=== PATIENT | male | born 1995 | race Caucasian/White ===

== ENCOUNTER 2017-06-12 15:02 | Emergency (ER) | payer OTHER ==
[2017-06-12 14:55] VITALS: O2SAT 99
[~2017-06-12 15:02] MED LIST: HYDR-3533 PO; IBUP800T23 PO; METH750T2 PO
[2017-06-12] MEDS ORDERED: IOHEXOL 350 MG/ML 10 ML VIAL (for RAD DIAG) IVCONTRAST ONE (15:03)
[2017-06-12] MEDS ORDERED: MORPHINE SULFATE 4 MG/ML INJ ONE (15:10)
[2017-06-12] MEDS ORDERED: ONDANSETRON HCL 4 MG/2 ML VIAL ONE (15:10)
[2017-06-12 15:25] LABS: AUTOMATED NEUTROPHIL # 14.6 TH/MM3 (1.8-7.7); BASOPHIL # 0.1 TH/MM3 (0-0.2); BASOPHIL % 0.5 % (0.0-2.0); EOSINOPHIL # 0.2 TH/MM3 (0-0.4); EOSINOPHIL % 1.1 % (0.0-4.0); HEMATOCRIT 52.2 % (39.0-51.0); LYMPH % 15.8 % (9.0-44.0); LYMPHOCYTE # 3.1 TH/MM3 (1.0-4.8); MEAN CELL VOLUME 85.7 FL (80.0-100.0); MEAN CORPUSCULAR HEMOGLOBIN 29.5 PG (27.0-34.0); MEAN CORPUSCULAR HGB CONC 34.4 % (32.0-36.0); MEAN PLATELET VOLUME 8.3 FL (7.0-11.0); MONO % 9.3 % (0.0-8.0); MONOCYTE # 1.8 TH/MM3 (0-0.9); NEUT % 73.3 % (16.0-70.0); PLATELET COUNT 373 TH/MM3 (150-450); RED CELL DISTRIBUTION WIDTH 13.3 % (11.6-17.2); WHITE BLOOD COUNT 19.9 TH/MM3 (4.0-11.0)
[2017-06-12] MEDS ORDERED: HYDROmorphone HCL PF 2 MG/ML VIAL ONE (15:44)
[2017-06-12 15:46] VITALS: BP 138/76; PULSE 114; RESP 19; O2SAT 98
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
[2017-06-12 15:53] LABS: PROTHROMBIN TIME - PATIENT 10.5 SEC (9.8-11.6)
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
[2017-06-12] MEDS ORDERED: HYDROmorphone HCL PF 2 MG/ML VIAL IV PUSH ONE (16:45)
[2017-06-12] MEDS ORDERED: HYDROmorphone HCL PF 1 MG/ML VIAL IV PUSH ONE (17:15)
[2017-06-12] MEDS ORDERED: HYDROmorphone HCL PF 2 MG/ML VIAL IV ONE (17:15)
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
[2017-06-12] MEDS ORDERED: PERC5TAB12 PO (17:44)
[2017-06-12 17:54] VITALS: BP 136/79; PULSE 111; RESP 18; O2SAT 96
== END 2017-06-12 18:17 | disposition home or self-care (01) ==
LOC: EDBD 15:02 → NEPI 15:02 → MERGE 15:02 → NEPE 18:17
DX: S30.811A Abrasion of abdominal wall, initial encounter (principal); S30.810A Abrasion of lower back and pelvis, initial encounter; M79.671 Pain in right foot; M79.604 Pain in right leg; V29.9XXA Motorcycle rider (driver) (passenger) injured in unspecified traffic accident, initial encounter
CPT/HCPCS: 70450; 71045; 71260; 72125; 72129; 72132; 72170; 73620; 74177; 80048; 85025; 85610; 85730; 86850; 86900; 86901; 86920; 96374; 96375; 96376; 99285; 99291; J1170; J2270; J2405; L0150; Q9967; G0390

== ENCOUNTER 2018-04-26 09:47 | Inpatient (IN) ==
[2018-04-26] MEDS ORDERED: Sod Chloride 0.9% Inj 1,000 ML IV.SIG ONE (10:17)
[2018-04-26] MEDS ORDERED: Morphine Inj 4 MG/ML Vial IV.PUSH ONE (10:17)
--- NOTE | 2018-04-26 10:27 | ED ---
HPI General Chief Complaint: Abdominal Pain Stated Complaint: Abd pain Time Seen by Provider: 04/26/18 10:10 Source: patient Mode of arrival: ambulatory Limitations: no limitations History of Present Illness HPI narrative: Patient is a 22-year-old male who presents the emergency room with complaints of abdominal pain. Patient reports that for the past 7 days, he has been having severe diffuse abdominal pain. Patient reports that his abdominal pain is associated with nausea and vomiting. Patient reports that he is unable to eat or drink anything due to this pain. Patient was seen at [facility] 2 days in a row, reports that on April 24 as well as April 25, he did have a CT of his abdomen and pelvis which showed mild thickening of the distal colon as well as the terminal ileum. Findings can be seen with chronic enteritis, inflammatory bowel disease should be excluded. Patient was discharged home with a prescription for Flagyl as well as Cipro, he was told to follow-up with a reconditioner. Patient did follow-up with Dr. Garcia today in the office - he was told to come to the ER as he will need a colonoscopy. Patient reports that he has not been able to take any of his antibiotics due to his nausea MD complaint: Reports abdominal pain Onset (ago): day(s) (7 days) Pain Consistency: constant Location: Reports diffuse Severity: severe Severity scale (1-10): 7 Quality: Reports cramping and stabbing Relieving factors: nothing Exacerbating factors: nothing Associated symptoms: Reports nausea and vomiting Related Data Previous Rx's Medication Instructions Recorded calcium carbonate-simethicone 1 tab PO TID PRN #14 tab 12/23/17 [Maalox Advanced] famotidine [Pepcid] 40 mg PO Q12H #14 tab 12/23/17 ondansetron [Zofran ODT] 4 mg PO QID PRN #7 tab 12/23/17 Allergies Allergy/AdvReac Type Severity Reaction Status Date / Time No Known Allergies Allergy Uncoded 04/08/15 11:10 Review of Systems ROS: all other systems reviewed are negative [facility] Medical History Medical History HTN (hypertension) (Acute) Social History Social History Substance History: Past History Smoking Status: Current some day smoker Tobacco Type: Cigarettes How Often Do You Have a Drink Containing Alcohol: 2 to 3 times a week Recent Travel in [facility] within the Last 8 Weeks: No Recent Out of Country Travel within the Last 8 Weeks: No Immunization History Tetanus Immunization: Unsure Exam Narrative Exam Narrative: GENERAL: Moderate distress, patient is yelling and screaming on the stretcher SKIN: Focused skin assessment warm/dry. HEAD: Atraumatic. Normocephalic. EYES: Pupils equal and round. No scleral icterus. No injection or drainage. ENT: No nasal bleeding or discharge. Mucous membranes pink and moist. NECK: Trachea midline. No JVD. CARDIOVASCULAR: Regular rate and rhythm. No murmur appreciated. RESPIRATORY: No accessory muscle use. Clear to auscultation. Breath sounds equal bilaterally. GASTROINTESTINAL: Abdomen soft, diffusely tender, nondistended. Hepatic and splenic margins not palpable. MUSCULOSKELETAL: No obvious deformities. No clubbing. No cyanosis. No edema. NEUROLOGICAL: Awake and alert. No obvious cranial nerve deficits. Motor grossly within normal limits. Normal speech. PSYCHIATRIC: Anxious mood and affect; insight and judgment normal. Course Initial Documented Vital Signs Temperature 97.3 F L 04/26/18 09:59 Pulse Rate 103 H 04/26/18 09:59 Respiratory Rate 16 04/26/18 09:59 Blood Pressure 128/75 04/26/18 09:59 Pulse Oximetry 99 04/26/18 09:59 Last Documented Vital Signs Temperature 97.3 F L 04/26/18 09:59 Pulse Rate 103 H 04/26/18 09:59 Respiratory Rate 16 04/26/18 09:59 Blood Pressure 128/75 04/26/18 09:59 Pulse Oximetry 99 04/26/18 09:59 Medical Decision Making MDM Narrative Medical decision making narrative: During the course of the patients emergency department visit, the patients history, examination, and differential diagnosis were reviewed with the patient. The patient was placed on a pattern maker with oximetry and frequent blood pressure monitoring. The patient had an IV access obtained and blood work sent for analysis. The patient was initially provided IV morphine as well as IV Zofran and IV fluids. A call was made out to the reconditioner, Dr. Garcia to review case Patient has had multiple CTs of his abdomen pelvis with contrast over the past few days, his CT from April 24 as well as April 25 were unchanged and did show suspicion for enteritis. Given that he has had 2 CAT scans in the past 3 days, we will hold off on repeating a CT. Case reviewed wt Dr. 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 The patients laboratory studies were reviewed and remarkable for WBC 18.3, hemoglobin 16.1, hematocrit 46.8, platelets 291 Sodium 141, potassium 3.5, BUN 11, creatinine 0.85, glucose 89, lactic acid 1.8 Patient reports that he was feeling much better after the IV morphine was administered, he was able to "take a cat nap." Plan to admit for observation for this colonoscopy. I did instruct patient to stop using marijuana, patient reports that he cannot as he uses about 1 pound of marijuana per month to help with his anger management and he is afraid to quit smoking. He will try to quit if he has to. case reviewed with Dr. Nilson Morales who accepts pt to service Medical Screen Exam Complete: Yes Emergency Medical Condition: Yes Differential Diagnosis Differential Diagnosis: Enteritis, IBS, colitis, electrolyte abnormality, mesenteric ischemia, perforated bowel Medical Records Medical records reviewed: Yes I reviewed the patient's medical records. Lab Data Result diagrams: 04/26/18 10:20 04/26/18 10:20 Lab Results 04/26/18 04/26/18 04/26/18 Range/Units 10:20 10:20 10:20 WBC 18.3 H (4.0-11.0) th/mm3 RBC 5.36 (4.50-5.90) mil/mm3 Hgb 16.1 (13.0-17.0) gm/dL Hct 46.8 (39.0-51.0) % MCV 87.2 (80.0-100.0) fL MCH 30.1 (27.0-34.0) pg MCHC 34.5 (32.0-36.0) % RDW 12.9 (11.6-17.2) % Plt Count 291 (150-450) th/mm3 MPV 8.8 (7.0-11.0) fL Neut % (Auto) 77.8 H (16.0-70.0) % Lymph % (Auto) 10.8 (9.0-44.0) % [place] % (Auto) 8.2 H (0.0-8.0) % Eos % (Auto) 2.9 (0.0-4.0) % Baso % (Auto) 0.3 (0.0-2.0) % Neut # (Auto) 14.3 H (1.8-7.7) th/mm3 Lymph # (Auto) 2.0 (1.0-4.8) th/mm3 [place] # (Auto) 1.5 H (0.0-0.9) th/mm3 Eos # (Auto) 0.5 H (0.0-0.4) th/mm3 Baso # (Auto) 0.1 (0.0-0.2) th/mm3 WBC Differential . Differential Comment Auto diff final PT 11.6 (9.8-11.6) sec INR 1.1 Ratio Sodium 141 (136-145) meq/L Potassium 3.5 (3.5-5.1) meq/L Chloride 108 H (98-107) meq/L Carbon Dioxide 22.1 (21.0-32.0) meq/L Anion Gap 11 (5-15) meq/L BUN 11 (7-18) mg/dL Creatinine 0.85 (0.60-1.30) mg/dL Estimated GFR Greater than 89 (>89) mL/min Random Glucose 89 (74-106) mg/dL Lactic Acid (0.4-2.0) mmol/L Calcium 9.5 (8.5-10.1) mg/dL Magnesium 1.8 (1.5-2.5) mg/dL Total Bilirubin 0.7 (0.2-1.0) mg/dL AST 16 (15-37) U/L ALT 22 (12-78) U/L Alkaline Phosphatase 68 (45-117) U/L Total Protein 8.2 (6.4-8.2) g/dL Albumin 4.7 (3.4-5.0) g/dL Lipase 81 (73-393) U/L Urine Color (Yellw/Straw) Urine Clarity (Clear) Urine pH (5.0-8.5) Ur Specific [place] (1.002-1.035) Urine Protein (Neg-Trace) mg/dL Urine Glucose (UA) (Negative) mg/dL Urine Ketones (Negative) mg/dL Urine Occult Blood (Negative) Urine Nitrate (Negative) Urine Bilirubin (Negative) Urine Urobilinogen (Less than 2) mg/dL Ur Leukocyte Esterase (Negative) Urine RBC (0-3) /hpf Urine WBC (0-5) /hpf Urine Mucus (Occasional) /lpf Micro UA Comment Ur Microscopic Review Urine Culture Comments Urine Opiates Screen (Neg) Ur Barbiturates Screen (Neg) Ur Amphetamines Screen (Neg) U Benzodiazepines Scrn (Neg) Urine Cocaine Screen (Neg) U Cannabinoids Screen (Neg) 04/26/18 04/26/18 04/26/18 Range/Units 10:20 10:20 10:20 WBC (4.0-11.0) th/mm3 RBC (4.50-5.90) mil/mm3 Hgb (13.0-17.0) gm/dL Hct (39.0-51.0) % MCV (80.0-100.0) fL MCH (27.0-34.0) pg MCHC (32.0-36.0) % RDW (11.6-17.2) % Plt Count (150-450) th/mm3 MPV (7.0-11.0) fL Neut % (Auto) (16.0-70.0) % Lymph % (Auto) (9.0-44.0) % [place] % (Auto) (0.0-8.0) % Eos % (Auto) (0.0-4.0) % Baso % (Auto) (0.0-2.0) % Neut # (Auto) (1.8-7.7) th/mm3 Lymph # (Auto) (1.0-4.8) th/mm3 [place] # (Auto) (0.0-0.9) th/mm3 Eos # (Auto) (0.0-0.4) th/mm3 Baso # (Auto) (0.0-0.2) th/mm3 WBC Differential Differential Comment PT (9.8-11.6) sec INR Ratio Sodium (136-145) meq/L Potassium (3.5-5.1) meq/L Chloride (98-107) meq/L Carbon Dioxide (21.0-32.0) meq/L Anion Gap (5-15) meq/L BUN (7-18) mg/dL Creatinine (0.60-1.30) mg/dL Estimated GFR (>89) mL/min Random Glucose (74-106) mg/dL Lactic Acid 1.8 (0.4-2.0) mmol/L Calcium (8.5-10.1) mg/dL Magnesium (1.5-2.5) mg/dL Total Bilirubin (0.2-1.0) mg/dL AST (15-37) U/L ALT (12-78) U/L Alkaline Phosphatase (45-117) U/L Total Protein (6.4-8.2) g/dL Albumin (3.4-5.0) g/dL Lipase (73-393) U/L Urine Color Yellow (Yellw/Straw) Urine Clarity Clear (Clear) Urine pH 6.0 (5.0-8.5) Ur Specific [place] 1.029 (1.002-1.035) Urine Protein 30 H (Neg-Trace) mg/dL Urine Glucose (UA) Negative (Negative) mg/dL Urine Ketones 80 or greater H (Negative) mg/dL Urine Occult Blood Negative (Negative) Urine Nitrate Negative (Negative) Urine Bilirubin Negative (Negative) Urine Urobilinogen Less than 2 (Less than 2) mg/dL Ur Leukocyte Esterase Negative (Negative) Urine RBC 1 (0-3) /hpf Urine WBC 2 (0-5) /hpf Urine Mucus Many H (Occasional) /lpf Micro UA Comment Culture not ind Ur Microscopic Review Not Reportable Urine Culture Comments Culture not ind Urine Opiates Screen Pos H (Neg) Ur Barbiturates Screen Neg (Neg) Ur Amphetamines Screen Neg (Neg) U Benzodiazepines Scrn Neg (Neg) Urine Cocaine Screen Neg (Neg) U Cannabinoids Screen Pos H (Neg) Imaging Data Radiologist's impression: Chest X-Ray 04/26/18 10:17 CONCLUSION: No acute cardiopulmonary disease. There is no evidence of free air. Discharge Plan Discharge Disposition Patient Disposition: ED Admit(ED Internal Use Only) Discharge Condition Condition: Stable Discharge Order Discharge Orders: ED Use Only Admit Order (Routine); Ordered 04/26/18 Ordered By: Radha Kowalski Discharge Details Diagnosis: Abdominal pain, Enteritis Physicians Team ED Provider: Radha Kowalski Primary Care Provider: UNKNOWN, Other Providers: Raj Abarca V Rxs /Orders / Referrals /Forms Prescriptions: No Action famotidine [Pepcid] 40 mg tablet 40 mg PO Q12H Qty: 14 RF: 0 ondansetron [Zofran ODT] 4 mg tablet,disintegrating 4 mg PO QID PRN (Reason: nausea and vomiting) Qty: 7 RF: 0 calcium carbonate-simethicone [Maalox Advanced] 1,000-60 mg tablet,chewable 1 tab PO TID PRN (Reason: dyspepsia) Qty: 14 RF: 0 Status ED Status: Admitted Observation Patient
[2018-04-26 10:51] LABS: INR 1.1 Ratio; Prothrombin Time 11.6 sec (9.8-11.6)
[2018-04-26 10:53] LABS: Baso # (Auto) 0.1 th/mm3 (0.0-0.2); Baso % (Auto) 0.3 % (0.0-2.0); Eos # (Auto) 0.5 th/mm3 (0.0-0.4); Eos % (Auto) 2.9 % (0.0-4.0); Hematocrit 46.8 % (39.0-51.0); Hemoglobin 16.1 gm/dL (13.0-17.0); Lymph % (Auto) 10.8 % (9.0-44.0); Mean Corpuscular HGB Conc 34.5 % (32.0-36.0); Mean Corpuscular Hemoglobin 30.1 pg (27.0-34.0); Mean Corpuscular Volume 87.2 fL (80.0-100.0); Mean Platelet Volume 8.8 fL (7.0-11.0); Mono # (Auto) 1.5 th/mm3 (0.0-0.9); Mono % (Auto) 8.2 % (0.0-8.0); Neut # (Auto) 14.3 th/mm3 (1.8-7.7); Neut % (Auto) 77.8 % (16.0-70.0); Platelet Count 291 th/mm3 (150-450); Red Blood Count 5.36 mil/mm3 (4.50-5.90); Red Cell Distribution Width 12.9 % (11.6-17.2); White Blood Count 18.3 th/mm3 (4.0-11.0)
[2018-04-26 10:56] LABS: Alanine Aminotransferase 22 U/L (12-78); Albumin 4.7 g/dL (3.4-5.0); Anion Gap 11 meq/L (5-15); Aspartate Aminotransferase 16 U/L (15-37); Blood Urea Nitrogen 11 mg/dL (7-18); Calcium 9.5 mg/dL (8.5-10.1); Carbon Dioxide 22.1 meq/L (21.0-32.0); Chloride 108 meq/L (98-107); Glomerular Filtration Rate Greater Than 89 mL/min (>89); Glucose,Random 89 mg/dL (74-106); Lipase 81 U/L (73-393); Magnesium 1.8 mg/dL (1.5-2.5); Potassium 3.5 meq/L (3.5-5.1); Sodium 141 meq/L (136-145)
--- NOTE | 2018-04-26 10:56 | XR ---
EXAM DATE: 04/26/2018 10:44 AM EST AGE/SEX: 22 years / Male INDICATIONS: Abdomen and pelvic pain. Please evaluate for free air. CLINICAL DATA: This is the patient's initial encounter. Patient reports that signs and symptoms have been present for 1 day and indicates a pain score of 8/10. MEDICAL/SURGICAL HISTORY: None. None. COMPARISON: [facility] [place], CHEST SINGLE AP, 06/12/2017. . FINDINGS: A single AP view of the chest demonstrates the lungs to be symmetrically aerated without evidence of mass, infiltrate or effusion. The cardiomediastinal contours are unremarkable. Osseous structures a re intact. There is no evidence of free air. CONCLUSION: No acute cardiopulmonary disease. There is no evidence of free air. Electronically signed by: Justin Rawls MD 04/26/2018 10:55 AM EST
[2018-04-26 10:59] LABS: Alkaline Phosphatase 68 U/L (45-117); Total Protein 8.2 g/dL (6.4-8.2)
[2018-04-26] MEDS ORDERED: Ciprofloxacin 400 MG/200 ML 400 MG/200 ML PIGGYBACK IV.SIG ONE (11:06)
[2018-04-26 11:10] LABS: Bilirubin,Urine Negative (Negative); Clarity,Urine Clear (Clear); Color,Urine Yellow (Yellw/Straw); Glucose,Urine (UA) Negative (Negative); Leukocyte Esterase,Urine Negative (Negative); Mucus,Urine Many /lpf (Occasional); Nitrite,Urine Negative (Negative); Specific Gravity,Urine 1.029 (1.002-1.035)
[2018-04-26 11:16] LABS: Amphetamine Screen,Urine Neg (Neg); Barbiturate Screen,Urine Neg (Neg); Cannabinoid Screen,Urine Pos (Neg); Cocaine Screen,Urine Neg (Neg)
[2018-04-26 11:19] LABS: Opiate Screen,Urine Pos (Neg)
[2018-04-26] MEDS ORDERED: Bisacodyl 10 MG Supp RECTAL PRN (11:56)
[2018-04-26] MEDS ORDERED: Naloxone Inj 0.4 MG/ML Vial IV.PUSH PRN (11:56)
[2018-04-26] MEDS ORDERED: Acetaminophen 325 MG Tablet PO PRN (11:56)
[2018-04-26] MEDS ORDERED: Ciprofloxacin 400 MG/200 ML 400 MG/200 ML PIGGYBACK IV.SIG SCH (12:00)
[2018-04-26] MEDS: Sod Chloride 0.9% Inj 1,000 ML IV.CONT SCH ×3 (12:53→21:54)
--- NOTE | 2018-04-26 12:57 | P.CONGI ---
History of Present Illness Consult date: 04/26/18 Consult reason: Lower abdominal pain with nausea and vomiting Chief complaint: Enteritis, Abdominal Pain History of Present Illness: This patient is a 22-year-old male with past medical history of hypertension who presents to the emergency room at [facility], sent from GI MD for complaints of lower abdominal pain and cramping with nausea and vomiting. Patient denies any past history of surgeries. Upon consultation, patient endorses lower abdominal "mild" cramping since December 2017 with intermittent nausea and vomiting which provided relief. Patient states over the last week the pain has increased in severity, is now constant without any aggravating or alleviating factors. Patient describes pain as a twisting and tight sensation. Denies fever or chills. At this time patient rates pain as 1 out of 10 due to recent administration of morphine in the ER. Patient denies ever having had EGD or colonoscopy in the past. He denies any known family history for gastrointestinal disorders. Patient denies any difficulty swallowing or heartburn. Patient states he normally has 1 soft brown bowel movement daily without any noted bleeding. States last BM 3 days ago. Patient does endorse smoking cigarettes 1 pack/day. He also endorses the use of marijuana daily up until 1 week ago. Patient denies any use of alcohol products. Our service has been consulted to evaluate patient for his lower abdominal pain with nausea and vomiting. Review of Systems All other systems reviewed negative except as stated in HPI PMFSH - History History Provided By: Patient - Medical History Medical History: Medical History (Last Reviewed 04/26/18 @ 16:37 by Shiloh Evans) HTN (hypertension) - Surgical History Surgical History: Surgical History (Last Updated 04/26/18 @ 17:27 by Shiloh Evans) No history of previous surgery - Family History Family History: Family History (Last Updated 04/26/18 @ 17:27 by Shiloh Evans) Father ESRD (end stage renal disease) Father HTN (hypertension) - Tobacco History Tobacco Use In Past 30 Days: Yes Smoking Status: Current some day smoker Tobacco Type: Cigarettes - Alcohol History How Often Do You Have a Drink Containing Alcohol: 2 to 3 times a week - Substance Use History Substance History: Past History - Substance Use Type Marijuana Status: Active Route Used: Inhalation Reason for Use: Calm Down, Feels Good, Get High - Travel History Recent Travel in the [facility] Within the Last 8 Weeks: No Recent Travel Out of the Country Within the Last 8 Weeks: No - Immunization History Tetanus Immunization: Unsure Medications and Allergies Active Medications: Active Medications Acetaminophen (Tylenol) 650 mg PO Q4H PRN PRN Reason: headache/fever/pain1-4 Hydrocodone Bitart/Acetaminophen (Barlow 5/325) 1 tab PO Q6H PRN PRN Reason: pain scale 5 to 10 Al Hydroxide/Mg Hydroxide (Milk Of Magnesia Liq) 30 ml PO Q12H PRN PRN Reason: Mild Constipation Bisacodyl (Dulcolax Supp) 10 mg RECTAL DAILY PRN PRN Reason: SEVERE CONSITIPATION Sodium Chloride (Ns Inj) 1,000 mls @ 100 mls/hr IV.CONT .Q10H SANA Ciprofloxacin/Dextrose (Cipro 400 Mg/200 Ml Inj) 400 mg in 200 mls @ 200 mls/ hr IV.SIG Q8H SANA Last Admin: 04/26/18 12:15 Dose: Not Given Metronidazole/Sodium Chloride (Flagyl 500 Mg Inj) 100 mls @ 100 mls/hr IV.SIG Q12H SANA Last Admin: 04/26/18 12:16 Dose: Not Given Lactulose (Lactulose Liq) 30 ml PO DAILY PRN PRN Reason: SEVERE CONSITIPATION Morphine Sulfate (Morphine Inj) 2 mg IV.PUSH Q4H PRN PRN Reason: breakthrough pain/or if NPO Naloxone HCl (Narcan Inj) 0.4 mg IV.PUSH UNSCH PRN PRN Reason: SEE LABEL COMMENTS Ondansetron HCl (Zofran Inj) 4 mg IV.PUSH Q6H PRN PRN Reason: NAUSEA OR VOMITING Polyethylene Glycol/Electrolytes (Colyte Liq) 4,000 ml PO ONCE ONE Stop: 04/26/18 16:01 Sennosides (Senokot) 17.2 mg PO Q12H PRN PRN Reason: Moderate Constipation Sodium Chloride (Ns Flush) 2 ml IV.FLUSH PRN PRN PRN Reason: FLUSH AFTER USING IV ACCESS Sodium Chloride (Ns Flush) 2 ml IV.FLUSH BID SANA Sodium Chloride (Ns Flush) 2 ml IV.FLUSH PRN PRN PRN Reason: FLUSH AFTER USING IV ACCESS Allergies Allergy/AdvReac Type Severity Reaction Status Date / Time No Known Allergies Allergy Uncoded 04/08/15 11:10 Exam Vital signs: Vital Signs 04/26/18 09:59 04/26/18 10:18 04/26/18 11:56 Temperature 97.3 F L Pulse Rate 103 H 84 Respiratory Rate 16 17 Blood Pressure 128/75 110/54 L Pulse Oximetry 99 97 97 Intake & Output 04/25/18 04/26/18 04/26/18 18:59 06:59 18:59 Intake Total 1100 / 1100 Balance 1100 / 1100 Weight 95.254 kg Intake: IV 1100 / 1100 NS Inj 1,000 ML @ Wide Open IV. 1000 / 1000 SIG BOLUS ONE Rx#:[id number] Flagyl 500 MG Inj 100 ML @ 100 100 / 100 mls/hr IV.SIG ONCE ONE Rx#: [id number] - Constitutional no acute distress - Routine HEENT Exam Head: Present: normocephalic - Routine Respiratory Exam Present: CTA bilaterally. Absent: accessory muscle use - Routine Cardiovascular Exam Present: RRR, S1, S2 - Routine Abdominal Exam Present: soft, normoactive bowel sounds. Absent: tenderness, distended, guarding, firm - Routine Extremities Exam Absent: edema - Routine Skin Exam Present: dry, warm. Absent: pallor - Routine Neurological Exam Present: alert, oriented X3 Results - Labs CBC & Chem 7: 04/26/18 10:20 04/26/18 10:20 Labs: Laboratory Results - last 24 hr 04/26/18 04/26/18 04/26/18 10:20 10:20 10:20 WBC 18.3 H RBC 5.36 Hgb 16.1 Hct 46.8 MCV 87.2 MCH 30.1 MCHC 34.5 RDW 12.9 Plt Count 291 MPV 8.8 Neut % (Auto) 77.8 H Lymph % (Auto) 10.8 [place] % (Auto) 8.2 H Eos % (Auto) 2.9 Baso % (Auto) 0.3 Neut # (Auto) 14.3 H Lymph # (Auto) 2.0 Trigg # (Auto) 1.5 H Eos # (Auto) 0.5 H Baso # (Auto) 0.1 WBC Differential . Differential Comment Auto diff final PT 11.6 INR 1.1 Sodium 141 Potassium 3.5 Chloride 108 H Carbon Dioxide 22.1 Anion Gap 11 BUN 11 Creatinine 0.85 Estimated GFR Greater than 89 Random Glucose 89 Lactic Acid Calcium 9.5 Magnesium 1.8 Total Bilirubin 0.7 AST 16 ALT 22 Alkaline Phosphatase 68 Total Protein 8.2 Albumin 4.7 Lipase 81 Urine Color Urine Clarity Urine pH Ur Specific [place] Urine Protein Urine Glucose (UA) Urine Ketones Urine Occult Blood Urine Nitrate Urine Bilirubin Urine Urobilinogen Ur Leukocyte Esterase Urine RBC Urine WBC Urine Mucus Micro UA Comment Ur Microscopic Review Urine Culture Comments Urine Opiates Screen Ur Barbiturates Screen Ur Amphetamines Screen U Benzodiazepines Scrn Urine Cocaine Screen U Cannabinoids Screen 04/26/18 04/26/18 04/26/18 10:20 10:20 10:20 WBC RBC Hgb Hct MCV MCH MCHC RDW Plt Count MPV Neut % (Auto) Lymph % (Auto) [place] % (Auto) Eos % (Auto) Baso % (Auto) Neut # (Auto) Lymph # (Auto) [place] # (Auto) Eos # (Auto) Baso # (Auto) WBC Differential Differential Comment PT INR Sodium Potassium Chloride Carbon Dioxide Anion Gap BUN Creatinine Estimated GFR Random Glucose Lactic Acid 1.8 Calcium Magnesium Total Bilirubin AST ALT Alkaline Phosphatase Total Protein Albumin Lipase Urine Color Yellow Urine Clarity Clear Urine pH 6.0 Ur Specific [place] 1.029 Urine Protein 30 H Urine Glucose (UA) Negative Urine Ketones 80 or greater H Urine Occult Blood Negative Urine Nitrate Negative Urine Bilirubin Negative Urine Urobilinogen Less than 2 Ur Leukocyte Esterase Negative Urine RBC 1 Urine WBC 2 Urine Mucus Many H Micro UA Comment Culture not ind Ur Microscopic Review Not Reportable Urine Culture Comments Culture not ind Urine Opiates Screen Pos H Ur Barbiturates Screen Neg Ur Amphetamines Screen Neg U Benzodiazepines Scrn Neg Urine Cocaine Screen Neg U Cannabinoids Screen Pos H - Imaging Impressions Chest X-Ray 04/26/18 10:17 CONCLUSION: No acute cardiopulmonary disease. There is no evidence of free air. Assessment and Plan (1) Abdominal pain Status: Acute Code(s): R10.9 - Unspecified abdominal pain (2) Enteritis Status: Acute Code(s): K52.9 - Noninfective gastroenteritis and colitis, unspecified - Plan This patient is a 22-year-old male with past medical history of hypertension who presents to the emergency room at [facility], sent from [facility] for complaints of lower abdominal pain and cramping with nausea and vomiting. Patient denies any past history of surgeries. Upon consultation, patient endorses lower abdominal "mild" cramping since December 2017 with intermittent nausea and vomiting which provided relief. Patient states over the last week the pain has increased in severity, is now constant without any aggravating or alleviating factors. Patient describes pain as a twisting and tight sensation. CT abdomen and pelvis done at [facility] showed possible terminal ileum thickening. Denies fever or chills. At this time patient rates pain as 1 out of 10 due to recent administration of morphine in the ER. Patient denies ever having had EGD or colonoscopy in the past. He denies any known family history for gastrointestinal disorders. Patient denies any difficulty swallowing or heartburn. Patient states he normally has 1 soft brown bowel movement daily without any noted bleeding. States last BM 3 days ago. Patient does endorse smoking cigarettes 1 pack/day. He also endorses the use of marijuana daily up until 1 week ago. Patient denies any use of alcohol products. Our service has been consulted to evaluate patient for his lower abdominal pain with nausea and vomiting. Abdominal pain Nausea vomiting -Patient presents to [facility] from [facility] office with complaint of lower abdominal pain and cramping with nausea and vomiting. States onset December 2017 and has been increasing in severity. CT abdomen and pelvis done at [facility] showed possible terminal ileum thickening. Patient afebrile at 97.3 -WBC 18.3 hemoglobin 16.1 hematocrit 46.8 platelet count 291 INR 1.1 -Total bilirubin 0.7 AST 16 ALT 22 lactic acid 1.8 alk phos 68 lipase 81 Plan -Clear liquid diet -N.p.o. after midnight -Obtain consent for colonoscopy with terminal ileum intubation -EGD -GoLYTELY prep this afternoon -Continue IV antibiotics -Monitor labs -Analgesic and antiemetics as per attending -IV hydration -Supportive care -Further recommendations to follow based on patient status and findings This patient has been seen by myself and Dr. Abarca and this note is written on his behalf - Attending Attestation Dr. Abarca (1) Abdominal pain Qualifiers: Abdominal location: generalized Qualified Code(s): R10.84 - Generalized abdominal pain
[2018-04-26] MEDS: Morphine Sulfate Inj 2 MG/ML Vial IV.PUSH PRN ×2 (13:47→19:47)
[2018-04-26] MEDS ORDERED: PEG 3350/E-Lyte Soln 4000 ML Bottle PO ONE (16:00)
--- NOTE | 2018-04-26 16:43 | P.HP ---
History of Present Illness Primary Care Physician: UNKNOWN Chief Complaint: abdominal pain/nausea/vomiting History of Present Illness: 22-year-old male with history of hypertension, marijuana use, tobacco use, presents with ongoing abdominal pain, nausea, and vomiting. Patient was sent from his gas pumper Dr. Almeida's office for further evaluation. Patient reports he has been having issues with abdominal pain, nausea/vomiting since December 2017, now worse over the past week. He has presented to [facility] twice over the past few days for the same complaint. He locates abdominal pain across bilateral lower quadrants, described as severe intermittent cramping and twisting. He also reports associated nausea and vomiting, multiples times over the past few days. He also reports inability to tolerate oral intake over the past 5 days. He denies any changes in his bowel movements, although last bowel movement was 3 days ago. Denies any hematemesis , hematochezia, or melena. Denies any fevers or chills. Patient admits to daily marijuana use, however has not used over the past week due to feeling sick. He denies any alcohol use. He has never had an EGD/colonoscopy. Denies any prior abdominal surgeries. He denies any other medical complaints including no chest pain, shortness of breath, or urinary complaints. Review of Systems All other systems reviewed negative except as stated in HPI PMFSH - History History Provided By: Patient - Medical / Surgical Hx Neg / Unobtainable Surgical History: No Previous Surgery - Medical History Medical History: Medical History (Last Reviewed 04/26/18 @ 16:37 by Shiloh Evans) HTN (hypertension) - Surgical History Surgical History: Surgical History (Last Updated 04/26/18 @ 17:27 by Shiloh Evans) No history of previous surgery - Family History Family History: Family History (Last Updated 04/26/18 @ 17:27 by Shiloh Evans) Father ESRD (end stage renal disease) Father HTN (hypertension) - Social History I have reviewed the patient's Social History: Yes - Tobacco History Tobacco Use In Past 30 Days: Yes Smoking Status: Current some day smoker Tobacco Type: Cigarettes Packs Per Day: 1 - Alcohol History How Often Do You Have a Drink Containing Alcohol: Never - Substance Use History Substance History: Active Abuse, Past History - Substance Use Type Marijuana Status: Active Route Used: Inhalation - Travel History Recent Travel in the [place] Within the Last 8 Weeks: No Recent Travel Out of the Country Within the Last 8 Weeks: No - Immunization History Tetanus Immunization: Unsure Medications and Allergies Active Medications: Active Medications Acetaminophen (Tylenol) 650 mg PO Q4H PRN PRN Reason: headache/fever/pain1-4 Hydrocodone Bitart/Acetaminophen (Alda 5/325) 1 tab PO Q6H PRN PRN Reason: pain scale 5 to 10 Al Hydroxide/Mg Hydroxide (Milk Of Magnesia Liq) 30 ml PO Q12H PRN PRN Reason: Mild Constipation Bisacodyl (Dulcolax Supp) 10 mg RECTAL DAILY PRN PRN Reason: SEVERE CONSITIPATION Sodium Chloride (Ns Inj) 1,000 mls @ 100 mls/hr IV.CONT .Q10H SANA Last Admin: 04/26/18 12:53 Dose: 100 mls/hr Ciprofloxacin/Dextrose (Cipro 400 Mg/200 Ml Inj) 400 mg in 200 mls @ 200 mls/ hr IV.SIG Q8H SANA Metronidazole/Sodium Chloride (Flagyl 500 Mg Inj) 100 mls @ 100 mls/hr IV.SIG Q12H SANA Lactulose (Lactulose Liq) 30 ml PO DAILY PRN PRN Reason: SEVERE CONSITIPATION Morphine Sulfate (Morphine Inj) 2 mg IV.PUSH Q4H PRN PRN Reason: breakthrough pain/or if NPO Last Admin: 04/26/18 13:47 Dose: 2 mg Naloxone HCl (Narcan Inj) 0.4 mg IV.PUSH UNSCH PRN PRN Reason: SEE LABEL COMMENTS Ondansetron HCl (Zofran Inj) 4 mg IV.PUSH Q6H PRN PRN Reason: NAUSEA OR VOMITING Last Admin: 04/26/18 13:47 Dose: 4 mg Sennosides (Senokot) 17.2 mg PO Q12H PRN PRN Reason: Moderate Constipation Sodium Chloride (Ns Flush) 2 ml IV.FLUSH BID SANA Sodium Chloride (Ns Flush) 2 ml IV.FLUSH PRN PRN PRN Reason: FLUSH AFTER USING IV ACCESS Allergies Allergy/AdvReac Type Severity Reaction Status Date / Time No Known Allergies Allergy Uncoded 04/08/15 11:10 Exam Vital signs: Vital Signs 04/26/18 09:59 04/26/18 10:04 04/26/18 10:18 Temperature 97.3 F L Pulse Rate 103 H 74 Respiratory Rate 16 18 Blood Pressure 128/75 112/72 Pulse Oximetry 99 98 97 04/26/18 11:56 04/26/18 14:10 Temperature Pulse Rate 84 Respiratory Rate 17 17 Blood Pressure 110/54 L Pulse Oximetry 97 Intake & Output 04/25/18 04/26/18 04/26/18 18:59 06:59 18:59 Intake Total 1300 / 1300 Balance 1300 / 1300 Weight 95.254 kg Intake: IV 1300 / 1300 Cipro 400 MG/200 ML Inj 400 mg 200 / 200 In 200 ml @ 200 mls/hr IV.SIG ONCE ONE Rx#:[id number] NS Inj 1,000 ML @ Wide Open IV. 1000 / 1000 SIG BOLUS ONE Rx#:[id number] Flagyl 500 MG Inj 100 ML @ 100 100 / 100 mls/hr IV.SIG ONCE ONE Rx#: [id number] Narrative: GENERAL: Well-nourished, well-developed young male patient in [facility]. SKIN: Warm and dry. No rash. HEENT: Normocephalic. Atraumatic. Pupils equal and round. Mucous membranes pink and moist. NECK: Supple. Trachea midline. CARDIOVASCULAR: Regular rate and rhythm. No murmur appreciated. RESPIRATORY: No accessory muscle use. Clear to auscultation. Breath sounds equal bilaterally. GASTROINTESTINAL: Abdomen soft, nondistended, mild lower abdominal tenderness. Normoactive bowel sounds x4. MUSCULOSKELETAL: No obvious deformities. Extremities without clubbing, cyanosis , or edema. NEUROLOGICAL: Awake and alert. No obvious cranial nerve deficits. Moving all extremities spontaneously. Normal speech. PSYCHIATRIC: Appropriate mood and affect; insight and judgment normal. Results - Labs CBC & Chem 7: 04/26/18 10:20 04/26/18 10:20 Labs: Laboratory Results - last 24 hr 04/26/18 04/26/18 04/26/18 10:20 10:20 10:20 WBC 18.3 H RBC 5.36 Hgb 16.1 Hct 46.8 MCV 87.2 MCH 30.1 MCHC 34.5 RDW 12.9 Plt Count 291 MPV 8.8 Neut % (Auto) 77.8 H Lymph % (Auto) 10.8 [place] % (Auto) 8.2 H Eos % (Auto) 2.9 Baso % (Auto) 0.3 Neut # (Auto) 14.3 H Lymph # (Auto) 2.0 [place] # (Auto) 1.5 H Eos # (Auto) 0.5 H Baso # (Auto) 0.1 WBC Differential . Differential Comment Auto diff final PT 11.6 INR 1.1 Sodium 141 Potassium 3.5 Chloride 108 H Carbon Dioxide 22.1 Anion Gap 11 BUN 11 Creatinine 0.85 Estimated GFR Greater than 89 Random Glucose 89 Lactic Acid Calcium 9.5 Magnesium 1.8 Total Bilirubin 0.7 AST 16 ALT 22 Alkaline Phosphatase 68 Total Protein 8.2 Albumin 4.7 Lipase 81 Urine Color Urine Clarity Urine pH Ur Specific [place] Urine Protein Urine Glucose (UA) Urine Ketones Urine Occult Blood Urine Nitrate Urine Bilirubin Urine Urobilinogen Ur Leukocyte Esterase Urine RBC Urine WBC Urine Mucus Micro UA Comment Ur Microscopic Review Urine Culture Comments Urine Opiates Screen Ur Barbiturates Screen Ur Amphetamines Screen U Benzodiazepines Scrn Urine Cocaine Screen U Cannabinoids Screen 04/26/18 04/26/18 04/26/18 10:20 10:20 10:20 WBC RBC Hgb Hct MCV MCH MCHC RDW Plt Count MPV Neut % (Auto) Lymph % (Auto) [place] % (Auto) Eos % (Auto) Baso % (Auto) Neut # (Auto) Lymph # (Auto) [place] # (Auto) Eos # (Auto) Baso # (Auto) WBC Differential Differential Comment PT INR Sodium Potassium Chloride Carbon Dioxide Anion Gap BUN Creatinine Estimated GFR Random Glucose Lactic Acid 1.8 Calcium Magnesium Total Bilirubin AST ALT Alkaline Phosphatase Total Protein Albumin Lipase Urine Color Yellow Urine Clarity Clear Urine pH 6.0 Ur Specific [place] 1.029 Urine Protein 30 H Urine Glucose (UA) Negative Urine Ketones 80 or greater H Urine Occult Blood Negative Urine Nitrate Negative Urine Bilirubin Negative Urine Urobilinogen Less than 2 Ur Leukocyte Esterase Negative Urine RBC 1 Urine WBC 2 Urine Mucus Many H Micro UA Comment Culture not ind Ur Microscopic Review Not Reportable Urine Culture Comments Culture not ind Urine Opiates Screen Pos H Ur Barbiturates Screen Neg Ur Amphetamines Screen Neg U Benzodiazepines Scrn Neg Urine Cocaine Screen Neg U Cannabinoids Screen Pos H - Imaging Impressions Chest X-Ray 04/26/18 10:17 CONCLUSION: No acute cardiopulmonary disease. There is no evidence of free air. Caprini VTE Risk Assessment Caprini VTE Risk Assessment: No/Low Risk (score <= 1) Caprini Risk Assessment Model: Point Value = 1 Point Value = 2 Point Value = 3 Point Value = 5 Age 41-60 Minor surgery BMI > 25 kg/m2 Swollen legs Varicose veins or History of unexplained or recurrent spontaneous Oral contraceptives or hormone replacement Sepsis (< 1 month) Serious lung disease, including pneumonia (< 1 month) Abnormal pulmonary function Acute myocardial infarction Congestive heart failure (< 1 month) History of inflammatory bowel disease Medical patient at bed rest Age 61-74 Arthroscopic surgery Major open surgery (> 45 min) Laparoscopic surgery (> 45 min) Malignancy Confined to bed (> 72 hours) Immobilizing plaster cast Central venous access Age >= 75 History of VTE Family history of VTE Factor V Leiden Prothrombin [id number] Lupus anticoagulant Anticardiolipin antibodies Elevated serum homocysteine Heparin-induced thrombocytopenia Other congenital or acquired thrombophilia Stroke (< 1 month) Elective arthroplasty Hip, pelvis, or leg fracture Acute spinal cord injury (< 1 month) Prophylaxis Regimen: Total Risk Factor Score Risk Level Prophylaxis Regimen 0-1 Low Early ambulation 2 Moderate Order ONE of the following: *Sequential Compression Device (SCD) *Heparin 5000 units SQ BID 3-4 Higher Order ONE of the following medications: *Heparin 5000 units SQ TID *Enoxaparin/Lovenox 40 mg SQ daily (WT < 150 kg, CrCl > 30 mL/min) *Enoxaparin/Lovenox 30 mg SQ daily (WT < 150 kg, CrCl > 10-29 mL/min) *Enoxaparin/Lovenox 30 mg SQ BID (WT < 150 kg, CrCl > 30 mL/min) AND/OR *Sequential Compression Device (SCD) 5 or more Highest Order ONE of the following medications: *Heparin 5000 units SQ TID (Preferred with Epidurals) *Enoxaparin/Lovenox 40 mg SQ daily (WT < 150 kg, CrCl > 30 mL/min) *Enoxaparin/Lovenox 30 mg SQ daily (WT < 150 kg, CrCl > 10-29 mL/min) *Enoxaparin/Lovenox 30 mg SQ BID (WT < 150 kg, CrCl > 30 mL/min) AND *Sequential Compression Device (SCD) Assessment and Plan - Plan 22-year-old male with history of hypertension, marijuana use, tobacco use, presents with ongoing abdominal pain, nausea, and vomiting. Patient was sent from his gas pumper Dr. Almeida's office for further evaluation. Enteritis with intractable abdominal pain/nausea/vomiting: Acute. Also possibility of marijuana induced hyperemesis -Patient had CT abdomen/pelvis at [facility], showed possible terminal ileum thickening -Supportive treatment with IV fluid hydration, antiemetics, and pain control as needed -Give IV Protonix for now -Continue antibiotics with IV Cipro/Flagyl -GI consulted -Plan for EGD/colonoscopy tomorrow 04/27 -Clear liquid diet for now, n.p.o. after midnight Hypertension: patient reports recent started on lisinopril 1 week ago by PCP, however has not been able to take med due to N/V -give IV Vasotec prn -restart on lisinopril 10mg qd once tolerating oral intake -Monitor BP, adjust antihypertensives as needed Tobacco Use: chronic -counseled on cessation -nicotine patch Marijuana Use: chronic, smokes daily until feeling ill over the past week -counseled on cessation DVT Prophylaxis: teds/SCDs; avoid chemical prophylaxis with upcoming procedure
[2018-04-26] MEDS: Pantoprazole Inj 40 MG Vial IV.PUSH SCH (18:12)
[2018-04-26] MEDS: Ciprofloxacin 400 MG/200 ML 400 MG/200 ML PIGGYBACK IV.SIG SCH (19:49)
[2018-04-27] MEDS: Morphine Sulfate Inj 2 MG/ML Vial IV.PUSH PRN ×3 (00:20→20:54)
[2018-04-27] MEDS: Ciprofloxacin 400 MG/200 ML 400 MG/200 ML PIGGYBACK IV.SIG SCH ×3 (03:49→19:26)
[2018-04-27] MEDS: Sod Chloride 0.9% Inj 1,000 ML IV.CONT SCH ×3 (03:53→19:05)
[2018-04-27 07:24] LABS: Baso % (Auto) 0.3 % (0.0-2.0); Eos # (Auto) 0.5 th/mm3 (0.0-0.4); Eos % (Auto) 3.7 % (0.0-4.0); Hematocrit 39.7 % (39.0-51.0); Hemoglobin 13.8 gm/dL (13.0-17.0); Lymph # (Auto) 1.5 th/mm3 (1.0-4.8); Lymph % (Auto) 11.1 % (9.0-44.0); Mean Corpuscular HGB Conc 34.6 % (32.0-36.0); Mean Corpuscular Hemoglobin 30.2 pg (27.0-34.0); Mean Corpuscular Volume 87.2 fL (80.0-100.0); Mean Platelet Volume 8.9 fL (7.0-11.0); Mono # (Auto) 1.2 th/mm3 (0.0-0.9); Mono % (Auto) 8.6 % (0.0-8.0); Neut # (Auto) 10.3 th/mm3 (1.8-7.7); Neut % (Auto) 76.3 % (16.0-70.0); Platelet Count 212 th/mm3 (150-450); Red Blood Count 4.56 mil/mm3 (4.50-5.90); Red Cell Distribution Width 12.7 % (11.6-17.2); White Blood Count 13.5 th/mm3 (4.0-11.0)
[2018-04-27 08:02] LABS: Alanine Aminotransferase 18 U/L (12-78); Albumin 3.5 g/dL (3.4-5.0); Alkaline Phosphatase 51 U/L (45-117); Anion Gap 10 meq/L (5-15); Aspartate Aminotransferase 14 U/L (15-37); Blood Urea Nitrogen 6 mg/dL (7-18); Calcium 7.8 mg/dL (8.5-10.1); Carbon Dioxide 22.4 meq/L (21.0-32.0); Chloride 109 meq/L (98-107); Glomerular Filtration Rate Greater Than 89 mL/min (>89); Glucose,Random 71 mg/dL (74-106); Potassium 3.2 meq/L (3.5-5.1); Sodium 141 meq/L (136-145); Total Protein 6.2 g/dL (6.4-8.2)
[2018-04-27] MEDS ORDERED: Morphine Inj 4 MG/ML Vial IV.PUSH ONE (08:28)
--- NOTE | 2018-04-27 08:31 | P.PN ---
Subjective Interval history: Follow-up for intractable abdominal pain, nausea, vomiting. The patient reports severe 10/10 diffuse lower abdominal pain this morning, requesting increased pain medications. Denies fevers but does report chills and sweats. Reports continued nausea and vomiting, requesting antiemetics. He reports multiple loose bowel movements overnight after bowel prep. He denies any other medical complaints at this time. Physical Exam Vital signs: Vital Signs 04/26/18 09:59 04/26/18 10:04 04/26/18 10:18 Temperature 97.3 F L Pulse Rate 103 H 74 Respiratory Rate 16 18 Blood Pressure 128/75 112/72 Pulse Oximetry 99 98 97 04/26/18 11:56 04/26/18 14:10 04/26/18 16:00 Temperature 98.7 F Pulse Rate 84 82 Respiratory Rate 17 17 16 Blood Pressure 110/54 L 126/71 Pulse Oximetry 97 95 04/26/18 20:00 04/27/18 00:00 04/27/18 03:35 Temperature 98.4 F 98.1 F 98.0 F Pulse Rate 88 91 H 95 H Respiratory Rate 20 16 12 Blood Pressure 140/83 133/72 120/85 Pulse Oximetry 98 94 L 94 L 04/27/18 07:23 Temperature 98.6 F Pulse Rate 80 Respiratory Rate 14 Blood Pressure 142/88 H Pulse Oximetry 99 Intake & Output 04/26/18 04/27/18 04/27/18 18:59 06:59 18:59 Intake Total 2300 / 2300 1969 / 1969 Balance 2300 / 2300 1969 / 1969 Weight 95.6 kg Intake: IV 2300 / 2300 1050 / 1050 NS Inj 1,000 ML @ 100 mls/hr IV 1000 / 1000 750 / 750 .CONT .Q10H SANA Rx#:[id number] Cipro 400 MG/200 ML Inj 400 mg 200 / 200 200 / 200 In 200 ml @ 200 mls/hr IV.SIG Q8H SANA Rx#:[id number] NS Inj 1,000 ML @ Wide Open IV. 1000 / 1000 SIG BOLUS ONE Rx#:[id number] Flagyl 500 MG Inj 100 ML @ 100 100 / 100 100 / 100 mls/hr IV.SIG Q12H SANA Rx#: [id number] Oral 920 / 920 Other: Date of Last Bowel Movement 04/22/18 04/27/18 # Afsaneh 8 Weight On Admission 95.25 kg Narrative: GENERAL: Well-nourished, well-developed young male patient, in moderate distress secondary to pain, crying out. SKIN: Warm and dry. No rash. HEENT: Normocephalic. Atraumatic. Pupils equal and round. Mucous membranes pink and moist. CARDIOVASCULAR: Regular rate and rhythm. No murmur appreciated. RESPIRATORY: No accessory muscle use. Clear to auscultation. Breath sounds equal bilaterally. GASTROINTESTINAL: Abdomen soft, nondistended, mild lower abdominal tenderness. Normoactive bowel sounds x4. MUSCULOSKELETAL: No obvious deformities. Extremities without clubbing, cyanosis , or edema. NEUROLOGICAL: Awake and alert. No obvious cranial nerve deficits. Moving all extremities spontaneously. Normal speech. PSYCHIATRIC: Appropriate mood and affect; insight and judgment normal. Results - Labs CBC & Chem 7: 04/27/18 06:15 04/27/18 06:15 Laboratory Results - last 24 hr 04/26/18 04/26/18 04/26/18 10:20 10:20 10:20 WBC 18.3 H RBC 5.36 Hgb 16.1 Hct 46.8 MCV 87.2 MCH 30.1 MCHC 34.5 RDW 12.9 Plt Count 291 MPV 8.8 Neut % (Auto) 77.8 H Lymph % (Auto) 10.8 [place] % (Auto) 8.2 H Eos % (Auto) 2.9 Baso % (Auto) 0.3 Neut # (Auto) 14.3 H Lymph # (Auto) 2.0 [place] # (Auto) 1.5 H Eos # (Auto) 0.5 H Baso # (Auto) 0.1 WBC Differential . Differential Comment Auto diff final PT 11.6 INR 1.1 Sodium 141 Potassium 3.5 Chloride 108 H Carbon Dioxide 22.1 Anion Gap 11 BUN 11 Creatinine 0.85 Estimated GFR Greater than 89 Random Glucose 89 Lactic Acid Calcium 9.5 Magnesium 1.8 Total Bilirubin 0.7 AST 16 ALT 22 Alkaline Phosphatase 68 Total Protein 8.2 Albumin 4.7 Lipase 81 Urine Color Urine Clarity Urine pH Ur Specific [place] Urine Protein Urine Glucose (UA) Urine Ketones Urine Occult Blood Urine Nitrate Urine Bilirubin Urine Urobilinogen Ur Leukocyte Esterase Urine RBC Urine WBC Urine Mucus Micro UA Comment Ur Microscopic Review Urine Culture Comments Urine Opiates Screen Ur Barbiturates Screen Ur Amphetamines Screen U Benzodiazepines Scrn Urine Cocaine Screen U Cannabinoids Screen 04/26/18 04/26/18 04/26/18 10:20 10:20 10:20 WBC RBC Hgb Hct MCV MCH MCHC RDW Plt Count MPV Neut % (Auto) Lymph % (Auto) [place] % (Auto) Eos % (Auto) Baso % (Auto) Neut # (Auto) Lymph # (Auto) [place] # (Auto) Eos # (Auto) Baso # (Auto) WBC Differential Differential Comment PT INR Sodium Potassium Chloride Carbon Dioxide Anion Gap BUN Creatinine Estimated GFR Random Glucose Lactic Acid 1.8 Calcium Magnesium Total Bilirubin AST ALT Alkaline Phosphatase Total Protein Albumin Lipase Urine Color Yellow Urine Clarity Clear Urine pH 6.0 Ur Specific [place] 1.029 Urine Protein 30 H Urine Glucose (UA) Negative Urine Ketones 80 or greater H Urine Occult Blood Negative Urine Nitrate Negative Urine Bilirubin Negative Urine Urobilinogen Less than 2 Ur Leukocyte Esterase Negative Urine RBC 1 Urine WBC 2 Urine Mucus Many H Micro UA Comment Culture not ind Ur Microscopic Review Not Reportable Urine Culture Comments Culture not ind Urine Opiates Screen Pos H Ur Barbiturates Screen Neg Ur Amphetamines Screen Neg U Benzodiazepines Scrn Neg Urine Cocaine Screen Neg U Cannabinoids Screen Pos H 04/27/18 04/27/18 06:15 06:15 WBC 13.5 H RBC 4.56 Hgb 13.8 D Hct 39.7 MCV 87.2 MCH 30.2 MCHC 34.6 RDW 12.7 Plt Count 212 MPV 8.9 Neut % (Auto) 76.3 H Lymph % (Auto) 11.1 [place] % (Auto) 8.6 H Eos % (Auto) 3.7 Baso % (Auto) 0.3 Neut # (Auto) 10.3 H Lymph # (Auto) 1.5 [place] # (Auto) 1.2 H Eos # (Auto) 0.5 H Baso # (Auto) 0.0 WBC Differential . Differential Comment Auto diff final PT INR Sodium 141 Potassium 3.2 L Chloride 109 H Carbon Dioxide 22.4 Anion Gap 10 BUN 6 L Creatinine 0.62 Estimated GFR Greater than 89 Random Glucose 71 L Lactic Acid Calcium 7.8 L D Magnesium Total Bilirubin 0.4 AST 14 L ALT 18 Alkaline Phosphatase 51 Total Protein 6.2 L D Albumin 3.5 D Lipase Urine Color Urine Clarity Urine pH Ur Specific [place] Urine Protein Urine Glucose (UA) Urine Ketones Urine Occult Blood Urine Nitrate Urine Bilirubin Urine Urobilinogen Ur Leukocyte Esterase Urine RBC Urine WBC Urine Mucus Micro UA Comment Ur Microscopic Review Urine Culture Comments Urine Opiates Screen Ur Barbiturates Screen Ur Amphetamines Screen U Benzodiazepines Scrn Urine Cocaine Screen U Cannabinoids Screen - Imaging Impressions Chest X-Ray 04/26/18 10:17 CONCLUSION: No acute cardiopulmonary disease. There is no evidence of free air. Assessment and Plan - Plan 22-year-old male with history of hypertension, marijuana use, tobacco use, presents with ongoing abdominal pain, nausea, and vomiting. 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 Almeida's office for further evaluation. Enteritis with intractable abdominal pain/nausea/vomiting: Acute. Also possibility of marijuana induced hyperemesis -Patient had CT abdomen/pelvis at [facility], showed possible terminal ileum thickening -Supportive treatment with IV fluid hydration, antiemetics, and pain control as needed -Give IV Protonix for now -Continue antibiotics with IV Cipro/Flagyl -GI consulted -Plan for EGD/colonoscopy today 04/27 -NPO Hypertension: patient reports recent started on lisinopril 1 week ago by PCP, however has not been able to take med due to N/V -give IV Vasotec prn -restart on lisinopril 10mg qd once tolerating oral intake -Monitor BP, adjust antihypertensives as needed -BP has been fairly well controlled Tobacco Use: chronic -counseled on cessation -nicotine patch Marijuana Use: chronic, smokes daily until feeling ill over the past week -counseled on cessation DVT Prophylaxis: teds/SCDs; avoid chemical prophylaxis with upcoming procedure Discharge Planning: Further disposition to follow EGD/colonoscopy today.
[2018-04-27] MEDS ORDERED: Potassium Chlor 20 mEq Premix 20 MEQ/100 ML PIGGYBACK IV.SIG ONE (09:00)
--- NOTE | 2018-04-27 09:46 | GIPROC ---
[facility] [address] [facility]. [facility], [address] COLONOSCOPY PROCEDURE REPORT EXAM DATE: 04/27/2018 PATIENT NAME: Slava Hunt MR #: [id number] BIRTHDATE: 1995 ENDOSCOPIST: Raj Abarca MD ORDER #: [id number] WOOD HEEL FLAP INSERTER: Osito Munoz and Yaima Lam STATUS: inpatient INDICATIONS: The patient is a 22 yr old male here for a colonoscopy due to abdominal pain, unexplained diarrhea, and Abn CT PROCEDURE PERFORMED: Colonoscopy, diagnostic MEDICATIONS: Per Anesthesia and None. PREP QUALITY: poor ESTIMATED BLOOD LOSS: None CONSENT: The patient understands the risks and benefits of the procedure and understands that these risks include, but are not limited to: sedation, allergic reaction, infection, perforation and/or bleeding. Alternative means of evaluation and treatment include, among others: physical exam, x-rays, and/or surgical intervention. The patient elects to proceed with this endoscopic procedure. medical equipment was checked for proper function. Hand hygiene and appropriate measures for infection prevention was taken. After the risks, benefits and alternatives of the procedure were thoroughly explained, Informed consent was verified, confirmed and timeout was successfully executed by the treatment team. A digital exam was performed and revealed no abnormalities of the rectum The Pentax EC-[id number] endoscope was introduced through the anus and advanced to the cecum, which was identified by both the appendix and ileocecal valve. The instrument was then slowly withdrawn as the colon was fully examined. COLON FINDINGS: Normal TI mucosa.Bx taken. The colonic mucosa appeared normal throughout the entire examined colon. Multiple biopsies were performed. Retroflexed views revealed internal hemorrhoids and Retroflexed views revealed small internal hemorrhoids The scope was then completely withdrawn from the patient and the procedure terminated. PROCEDURE WITHDRAWAL TIME:8minutes ADVERSE EVENTS: There were no complications. IMPRESSIONS: 1. Normal TI mucosa.Bx taken 2. The colonic mucosa appeared normal throughout the entire examined colon; multiple biopsies were performed 3. Retroflexed views revealed internal hemorrhoids 4. Retroflexed views revealed small internal hemorrhoids 5. Was performed 6. Revealed no abnormalities of the rectum RECOMMENDATIONS: Await biopsy results. Biopsy results will not be ready for 7-10 days. If you don't hear from us in two weeks, call our office for results. RECALL: Colonoscopy, pending biopsy results Raj Abarca MD eSigned: Raj Abarca MD 04/27/2018 9:45 AM cc: PATIENT NAME: Slava Hunt MR#: [id number]
--- NOTE | 2018-04-27 09:51 | GIPROC ---
[facility] [address] [facility]. [facility], [address] EGD PROCEDURE REPORT EXAM DATE: 04/27/2018 PATIENT NAME: Slava Hunt MR #: [id number] BIRTHDATE: 1995 ATTENDING: Raj Abarca MD ORDER #: [id number] PRECISION DYER: Osito Munoz and Yaima Lam STATUS: inpatient INDICATIONS: The patient is a 22 yr old male here for an EGD due to dyspepsia, nausea, and vomiting PROCEDURE PERFORMED: EGD, diagnostic MEDICATIONS: Per Anesthesia and None. TOPICAL ANESTHETIC: none CONSENT: The patient understands the risks and benefits of the procedure and understands that these risks include, but are not limited to: sedation, allergic reaction, infection, perforation and/or bleeding. Alternative means of evaluation and treatment include, among others: physical exam, x-rays, and/or surgical intervention. The patient elects to proceed with this endoscopic procedure. medical equipment was checked for proper function. Hand hygiene and appropriate measures for infection prevention was taken. After the risks, benefits and alternatives of the procedure were thoroughly explained, Informed consent was verified, confirmed and timeout was successfully executed by the treatment team. The patient was anesthetized with topical anesthesia and the EC-[id number] (Pedi C) endoscope was introduced through the mouth and advanced to the second portion of the duodenum. Retroflexed views revealed a hiatal hernia The gastroscope was then slowly withdrawn and removed. ESOPHAGUS: There was [place] Class A esophagitis noted. STOMACH: There was mild antral gastropathy noted. Cold forcep biopsies were taken at the antrum and angularis. DUODENUM: The duodenal mucosa appeared normal in the entire duodenum. Cold forceps biopsies were taken in the bulb and second portion. ADVERSE EVENTS: There were no complications. IMPRESSIONS: 1. There was [place] Class A esophagitis noted 2. There was mild antral gastropathy noted [T2] 3. Normal duodenal mucosa in the entire duodenum 4. Retroflexed views revealed a hiatal hernia RECOMMENDATIONS: Await biopsy results. Biopsy results will not be ready for 7-10 days. If you don't hear from us in two weeks, call our office for biopsy results. PATIENT CONDITION: stable DISPOSITION: Inpatient REPEAT EXAM: Return as needed for EGD Raj Abarca MD eSigned: Raj Abarca MD 04/27/2018 9:51 AM cc: PATIENT NAME: Slava Hunt MR#: [id number]
[2018-04-27] MEDS: Pantoprazole Inj 40 MG Vial IV.PUSH SCH (20:54)
[2018-04-28] MEDS: Ciprofloxacin 400 MG/200 ML 400 MG/200 ML PIGGYBACK IV.SIG SCH ×2 (05:07→11:24)
[2018-04-28] MEDS: Sod Chloride 0.9% Inj 1,000 ML IV.CONT SCH (05:07)
[2018-04-28] MEDS: Morphine Sulfate Inj 2 MG/ML Vial IV.PUSH PRN ×2 (07:35→13:17)
--- NOTE | 2018-04-28 08:11 | P.PN ---
Subjective Interval history: Follow-up for intractable abdominal pain, nausea, vomiting. The patient is moaning upon my arrival, but does stop to carry on conversation. Patient reports continued diffuse lower abdominal pain, described as tight squeezing 10/ 10 pains without radiation. He reports continued nausea with a few episodes of vomiting overnight. He reports he had one formed soft bowel movement which he described as dark. He reports subjective chills, no documented fevers. He is requesting increasing pain medications. He has no other medical complaints at this time. Physical Exam Vital signs: Vital Signs 04/27/18 09:44 04/27/18 11:33 04/27/18 15:18 Temperature 97.7 F 98.9 F 98.6 F Pulse Rate 90 80 71 Respiratory Rate 18 16 16 Blood Pressure 99/55 L 102/56 L 129/71 Pulse Oximetry 99 91 L 97 04/27/18 23:42 04/28/18 03:28 Temperature 98.2 F 98.0 F Pulse Rate 91 H 66 Respiratory Rate 16 12 Blood Pressure 129/69 118/63 Pulse Oximetry 95 97 Intake & Output 04/27/18 04/28/18 04/28/18 18:59 06:59 18:59 Intake Total 300 / 300 1051 / 1051 Balance 300 / 300 1051 / 1051 Intake: IV 100 / 100 1051 / 1051 NS Inj 1,000 ML @ 100 mls/hr IV 951 / 951 .CONT .Q10H SANA Rx#:[id number] Flagyl 500 MG Inj 100 ML @ 100 100 / 100 100 / 100 mls/hr IV.SIG Q12H SANA Rx#: [id number] Oral 0 / 0 Anesthesia Amount 200 / 200 Other: # Voids 4 2 Date of Last Bowel Movement 04/27/18 Narrative: GENERAL: Well-nourished, well-developed young male patient, in moderate distress secondary to pain, moaning, but then does completely stop moaning to have conversation and during examination. SKIN: Warm and dry. No rash. HEENT: Normocephalic. Atraumatic. Pupils equal and round. Mucous membranes pink and moist. CARDIOVASCULAR: Regular rate and rhythm. No murmur appreciated. RESPIRATORY: No accessory muscle use. Clear to auscultation. Breath sounds equal bilaterally. GASTROINTESTINAL: Abdomen soft, nondistended, mild lower abdominal tenderness, however no significant tenderness when distracted during conversation. Normoactive bowel sounds x4. MUSCULOSKELETAL: No obvious deformities. Extremities without clubbing, cyanosis , or edema. NEUROLOGICAL: Awake and alert. No obvious cranial nerve deficits. Moving all extremities spontaneously. Normal speech. PSYCHIATRIC: Appropriate mood and affect; insight and judgment normal. Results - Labs CBC & Chem 7: 04/27/18 06:15 04/27/18 06:15 Microbiology 04/26/18 10:20 Random Urine Urine Culture - Preliminary No growth in 24 hours - Imaging Chest X-Ray 04/26/18 10:17 CONCLUSION: No acute cardiopulmonary disease. There is no evidence of free air. Assessment and Plan - Plan 22-year-old male with history of hypertension, marijuana use, tobacco use, presents with ongoing abdominal pain, nausea, and vomiting. 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 Almeida's office for further evaluation. Enteritis with intractable abdominal pain/nausea/vomiting: Acute. Also possibility of marijuana induced hyperemesis -Patient had CT abdomen/pelvis at [facility], showed possible terminal ileum thickening -Supportive treatment with IV fluid hydration, antiemetics, and pain control as needed -Give IV Protonix for now -Continue antibiotics with IV Cipro/Flagyl -GI consulted -S/p EGD/colonoscopy 04/27 which revealed esophagitis, mild antral gastropathy, normal duodenum, normal colon, small internal hemorrhoids -Diet advanced to clear liquids -Patient still with lower abdominal intractable pain today, appreciate GI input, started on Librax by GI Hypertension: patient reports recent started on lisinopril 1 week ago by PCP, however has not been able to take med due to N/V -give IV Vasotec prn -restart on patient's lisinopril 10mg qd once tolerating oral intake -Monitor BP, adjust antihypertensives as needed -BP has been fairly well controlled Tobacco Use: chronic -counseled on cessation -nicotine patch Marijuana Use: chronic, smokes marijuana daily until feeling ill over the past week -counseled on cessation DVT Prophylaxis: teds/SCDs Discharge Planning: Discharge pending further clinical improvement, still with intractable abdominal pain. Hopefully discharge in next 1-2 days when tolerating oral intake. 1445 Hours: Notified by RN that the patient has signed out and left AGAINST MEDICAL ADVICE. This patient has the capacity to refuse care and understands the risks of leaving, including permanent disability and/or , and has had an opportunity to ask questions about his condition. The patient has been informed that he may return for care at any time, and follow up has been advised.
[2018-04-28] MEDS ORDERED: Morphine Sulfate Inj 2 MG/ML Vial IV.PUSH ONE (09:29)
--- NOTE | 2018-04-28 11:29 | P.PNGI ---
Subjective Interval history: Patient awake and alert Moaning in bed Reports severe abdominal pain and cramping States he had one dark colored BM yesterday Advised patient to notify nursing of dark stools. Post EGD with colonoscopy Physical Exam Vital signs: Vital Signs 04/27/18 11:33 04/27/18 15:18 04/27/18 23:42 Temperature 98.9 F 98.6 F 98.2 F Pulse Rate 80 71 91 H Respiratory Rate 16 16 16 Blood Pressure 102/56 L 129/71 129/69 Pulse Oximetry 91 L 97 95 04/28/18 03:28 Temperature 98.0 F Pulse Rate 66 Respiratory Rate 12 Blood Pressure 118/63 Pulse Oximetry 97 Intake & Output 04/27/18 04/28/18 04/28/18 18:59 06:59 18:59 Intake Total 300 / 300 1051 / 1051 Balance 300 / 300 1051 / 1051 Intake: IV 100 / 100 1051 / 1051 NS Inj 1,000 ML @ 100 mls/hr IV 951 / 951 .CONT .Q10H SANA Rx#:[id number] Flagyl 500 MG Inj 100 ML @ 100 100 / 100 100 / 100 mls/hr IV.SIG Q12H SANA Rx#: [id number] Oral 0 / 0 Anesthesia Amount 200 / 200 Other: # Voids 4 2 Date of Last Bowel Movement 04/27/18 - Constitutional mild distress - Routine HEENT Exam Head: Present: normocephalic - Routine Respiratory Exam Present: CTA bilaterally - Routine Abdominal Exam Present: soft, normoactive bowel sounds, tenderness. Absent: distended - Routine Skin Exam Present: dry, warm - Routine Neurological Exam Present: alert Results - Labs CBC & Chem 7: 04/27/18 06:15 04/27/18 06:15 Microbiology 04/26/18 10:20 Random Urine Urine Culture - Final No growth in 48 hours Assessment and Plan (1) Abdominal pain Status: Acute Code(s): R10.9 - Unspecified abdominal pain (2) Enteritis Status: Acute Code(s): K52.9 - Noninfective gastroenteritis and colitis, unspecified - Plan This patient is a 22-year-old male with past medical history of hypertension who presents to the emergency room at [facility], sent from GI MD for complaints of lower abdominal pain and cramping with nausea and vomiting. Patient denies any past history of surgeries. Upon consultation, patient endorses lower abdominal "mild" cramping since December 2017 with intermittent nausea and vomiting which provided relief. Patient states over the last week the pain has increased in severity, is now constant without any aggravating or alleviating factors. Patient describes pain as a twisting and tight sensation. CT abdomen and pelvis done at [facility] showed possible terminal ileum thickening. Denies fever or chills. At this time patient rates pain as 1 out of 10 due to recent administration of morphine in the ER. Patient denies ever having had EGD or colonoscopy in the past. He denies any known family history for gastrointestinal disorders. Patient denies any difficulty swallowing or heartburn. Patient states he normally has 1 soft brown bowel movement daily without any noted bleeding. States last BM 3 days ago. Patient does endorse smoking cigarettes 1 pack/day. He also endorses the use of marijuana daily up until 1 week ago. Patient denies any use of alcohol products. Our service has been consulted to evaluate patient for his lower abdominal pain with nausea and vomiting. Abdominal pain Nausea vomiting -Patient presents to [facility] from GI [facility] office with complaint of lower abdominal pain and cramping with nausea and vomiting. States onset December 2017 and has been increasing in severity. CT abdomen and pelvis done at [facility] showed possible terminal ileum thickening. Patient afebrile at 97.3 -WBC 18.3 hemoglobin 16.1 hematocrit 46.8 platelet count 291 INR 1.1 -Total bilirubin 0.7 AST 16 ALT 22 lactic acid 1.8 alk phos 68 lipase 81 04/28/2018 Intractable abdominal pain with nausea, possible cannabinoid hyperemesis syndrome Patient writhing in bed, reporting severe generalized abdominal pain with nausea and vomiting. Per bedside RN patient had reported nausea with emesis that consisted of mucus and phlegm. -Post EGD and colonoscopy 04/27/2018 EGD revealed the followin. There was LA Class A esophagitis noted 2. There was mild antral gastropathy noted [T2] 3. Normal duodenal mucosa in the entire duodenum 4. Retroflexed views revealed a hiatal hernia 04/27/2018 colonoscopy revealed the followin. Normal TI mucosa.Bx taken 2. The colonic mucosa appeared normal throughout the entire examined colon; multiple biopsies were performed 3. Retroflexed views revealed internal hemorrhoids 4. Retroflexed views revealed small internal hemorrhoids 5. Was performed 6. Revealed no abnormalities of the rectum -04/27/2018 WBC 13.5 hemoglobin 13.8 hematocrit 39.7 Total bilirubin 0.4 AST 14 ALT 18 alk phos 51 04/26/2018 lipase 81 Plan -Clear liquid diet -Librax p.o. every 6 hours -Analgesics and antiemetics as per attending -Continue IV antibiotics -Monitor labs -IV hydration -Supportive care -Patient to follow-up with Dr. Almeida/[facility] office This patient has been seen by myself and Dr. Abarca and this note is written on his behalf - Attending Attestation Dr. Abarca (1) Abdominal pain Qualifiers: Abdominal location: generalized Qualified Code(s): R10.84 - Generalized abdominal pain
[2018-04-28] MEDS ORDERED: Diatrizoate Meglum/Diatrizoate Sod Liq 9 ML UDC PO ONE (12:00)
[2018-04-28] MEDS ORDERED: CHLORDIAZEPOXIDE PO SCH (13:30)
[2018-04-28] MEDS ORDERED: CLIDINIUM PO SCH (13:30)
[2018-04-28] MEDS ORDERED: Lisinopril 10 MG Tablet PO SCH (14:15)
== END 2018-04-28 14:49 | disposition left against medical advice (07) ==
LOC: NEDA 09:47 → NEPD 09:47 → NEPGCP 16:12
PROVIDERS: ADMIT Internal Medicine; ATTEND Internal Medicine
PROC: COLONOS (2018-04-27 08:53)
PROC: PANENDO (2018-04-27 08:53)